=== PATIENT | female | born 1945 ===

== ENCOUNTER 2022-01-01 07:13 | Day surgery (SDC) | payer OTHER ==
[~2022-01-01] VITALS: Ht 157.5 cm; Wt 77.1 kg
[~2022-01-01 07:13] MED LIST: ATORVASTATIN CA10 MG PO; LOSARTAN POTASS50 MG PO; SYNTHROID50 MCG PO; WELLBUTRIN SR150 MG PO; ZOLOFT100 MG PO
== END 2022-01-01 20:05 | disposition home or self-care (01) ==
LOC: CIR.AMB 07:13
PROVIDERS: ATTEND Specialist
DX: R87.613 High grade squamous intraepithelial lesion on cytologic smear of cervix (HGSIL) (principal); Z20.822 Contact with and (suspected) exposure to COVID-19; I10 Essential (primary) hypertension; E03.9 Hypothyroidism, unspecified